=== PATIENT | male | born 1950 | race American Indian/Alaskan Native ===

== ENCOUNTER 2017-03-23 10:33 | Emergency (ER) | payer MEDICARE ==
--- NOTE | 2017-03-23 11:37 | Emergency Department Report ---
Chief Complaint: Skin Rash Stated Complaint: RASH Time Seen by Provider: 03/23/17 11:32 - HPI History of Present Illness: Patient is a 66-year-old male presents to ED complaining of burning in type lesions to his left forehead hurts and is not dilated. Patient states she was at a [employer] [place] 3 days ago and since then he broke out into this lesions and has gotten worse. Patient's states no blurred vision. Patient reports left upper lid swelling. States rash is not itching He denies fevers/chills/nausea/vomiting - ROS Review of Systems: As noted in HPI - Exam Vital Signs: Vital Signs 03/23/17 11:01 Temperature 98.1 F Pulse Rate 88 Respiratory 20 Rate Blood Pressure 158/89 O2 Sat by Pulse 100 Oximetry Physical Exam: GENERAL: Alert and oriented x3, no apparent distress, Normal Gait, atraumatic. HEAD: Head is normocephalic , left forehead lesions noted EYES: Left ocular edema. Vision intact. Sclera white nonerythematous SKIN: Generalized vesicular raised grouped lesions on left side of forehead spread along the V1 dermatome MSE screening note: Focused history and physical exam performed. Due to findings the following was ordered: ED Medical Decision Making - Medical Decision Making Patient was sent to be seen by fascia provider for eye exam, fluorescein stain, and continued examination and assessment ED Disposition for MSE Condition: Stable
[2017-03-23] MEDS ORDERED: FUL-GLO OP ONE (12:34)
[2017-03-23 13:31] VITALS: BP 170/89
--- NOTE | 2017-03-24 23:40 | Emergency Department Report ---
Entered by YAHIR CONNELL, acting as scribe for LIZA TAPIA PA. ED Eye Problem HPI - General Chief complaint: Skin Rash Stated complaint: RASH Time Seen by Provider: 03/23/17 11:32 Source: patient Mode of arrival: Ambulatory Limitations: No Limitations - History of Present Illness Initial comments: 66 year old male with no significant PMHx presents to the ED with c/o breakout on left forehead and left eye pain for 3 days. Patient reports he noticed his head was itchy and noticed a break out. Patient states mild chills and left eye swelling, but denies headache, fever, no blurry vision, nausea, vomiting, and ear ache. He also states no PMHx of shingles or chicken pox, and believes he had vaccine for Chicken Pox. He denies no PSHx. MD chief complaint: eye pain Onset/Timin -: days(s) Onset Description: sudden Location: left eye Place: home If Injury: none Eye Symptoms: itching Severity: moderate Severity scale (0 -10): 5 If Pain, Quality: burning Consistency: constant Associated Symptoms: none. denies: headache, neck pain, nausea/vomiting, cough , rhinorrhea, fever Treatments Prior to Arrival: other (counter meds and Aloe Vera meds) - Related Data Previous Rx's Medication Instructions Recorded Last Taken Type Cyclobenzaprine [Flexeril 10 MG 10 mg PO TID PRN #30 tablet 05/06/15 Unknown Rx TAB] Ibuprofen [Motrin 800 MG tab] 800 mg PO Q8HR #30 tablet 05/06/15 Unknown Rx traMADol [Ultram 50 MG tab] 50 mg PO Q6HR PRN #20 tablet 05/06/15 Unknown Rx Glycerin/Propylene Glycol 15 ml OP Q4H #1 bottle 03/23/17 Unknown Rx [Artificial Tears Drops] HYDROcodone/APAP 5-325 [Milner 1 each PO Q6HR PRN #15 tablet 03/23/17 Unknown Rx 5/325] Naproxen [Naprosyn TAB] 500 mg PO BID PRN #20 tablet 03/23/17 Unknown Rx Valacyclovir HCl [Valtrex] 1,000 mg PO TID #21 tablet 03/23/17 Unknown Rx Allergies Allergy/AdvReac Type Severity Reaction Status Date / Time No Known Allergies Allergy Unverified 05/06/15 13:58 ED Review of Systems Comment: All other systems reviewed and negative Constitutional: denies: chills, fever Eyes: eye pain (left eye), other (left eye swelling). denies: eye discharge, vision change ENT: denies: ear pain, throat pain Respiratory: denies: cough, shortness of breath, wheezing Cardiovascular: denies: chest pain, palpitations Gastrointestinal: denies: abdominal pain, nausea, diarrhea Genitourinary: denies: urgency, dysuria Musculoskeletal: denies: back pain, joint swelling, arthralgia Skin: rash, lesions Neurological: denies: headache, weakness, paresthesias ED Past Medical Hx - Past Medical History Previous Medical History?: No - Surgical History Past Surgical History?: No - Social History Smoking Status: Never Smoker Substance Use Type: Non Opiate Pain, Other - Medications Home Medications: Home Medications Medication Instructions Recorded Confirmed Last Taken Type Cyclobenzaprine [Flexeril 10 MG 10 mg PO TID PRN #30 tablet 05/06/15 Unknown Rx TAB] Ibuprofen [Motrin 800 MG tab] 800 mg PO Q8HR #30 tablet 05/06/15 Unknown Rx traMADol [Ultram 50 MG tab] 50 mg PO Q6HR PRN #20 tablet 05/06/15 Unknown Rx Glycerin/Propylene Glycol 15 ml OP Q4H #1 bottle 03/23/17 Unknown Rx [Artificial Tears Drops] HYDROcodone/APAP 5-325 [Milner 1 each PO Q6HR PRN #15 tablet 03/23/17 Unknown Rx 5/325] Naproxen [Naprosyn TAB] 500 mg PO BID PRN #20 tablet 03/23/17 Unknown Rx Valacyclovir HCl [Valtrex] 1,000 mg PO TID #21 tablet 03/23/17 Unknown Rx ED Physical Exam - General Limitations: No Limitations General appearance: alert, in no apparent distress - Head Head exam: Present: atraumatic, normocephalic - Eye Eye exam: Present: normal appearance, PERRL, EOMI - Expanded Eye Exam Expanded Eyelids: Erythema: Left, Swelling: Left Pupils: Regular, Round: Bilateral, Reactive: Bilateral Sclera/Conjunctival: Normal Inspection: Left (mild left-sided conjunctival injection, no dendritic lesions seen on fluorescein stain), Injection: Left Visual acuity (R) = 20/: 20 Visual acuity (L) = 20/: 25 - ENT ENT exam: Present: mucous membranes moist - Neck Neck exam: Present: normal inspection, full ROM - Respiratory Respiratory exam: Present: normal lung sounds bilaterally. Absent: respiratory distress, wheezes, rales, rhonchi, stridor - Cardiovascular Cardiovascular Exam: Present: regular rate, normal rhythm. Absent: systolic murmur, diastolic murmur, rubs, gallop - GI/Abdominal GI/Abdominal exam: Present: soft, normal bowel sounds - Rectal Rectal exam: Present: deferred - Extremities Exam Extremities exam: Present: normal inspection - Back Exam Back exam: Present: normal inspection - Neurological Exam Neurological exam: Present: alert, oriented X3, CN II-XII intact, normal gait - Psychiatric Psychiatric exam: Present: normal affect, normal mood - Skin Skin exam: Present: warm, dry, intact, normal color. Absent: rash ED Course Vital Signs 03/23/17 11:01 Temperature 98.1 F Pulse Rate 88 Respiratory 20 Rate Blood Pressure 158/89 O2 Sat by Pulse 100 Oximetry ED Medical Decision Making - Medical Decision Making A/P: Shingles/zoster of the face 1-left eye exam done with fluorescein stain, no dendritic lesions visualized on cornea. Done with Dr. Mooney. Visual acuity left eye 20/25, right eye 20/20, overall 20/20. As per [email or web address] recommendations will herpes zoster ( shingles): Oral: Immunocompetent patients: 1 g 3 times daily for 7 days 2-Motrin when necessary, Milner when necessary short course 3-artificial tears PRn, i advised pt to practice strict hand hygiene 4-I specifically advised the patient to follow up as soon as possible with ophthalmology. I emphasized the importance of follow-up to mitigate any potential blindness or loss of eyesight left eye secondary to retinal necrosis. Patient stated he understood the importance of following up with ophthalmology as soon as possible. As of current examination eyesight is intact and there are no signs of herpes opthalamicus. 5- I called the opthalmology practice of Dr. Almanza/Dr. Barry and set up appointment for 2pm tomorrow in [place] location, pt informed and states he will follow up tomorrow. ED Disposition Clinical Impression: Herpes zoster Qualifiers: Herpes zoster complications: without complications Qualified Code(s): B02.9 - Zoster without complications Disposition: DC-01 TO HOME OR SELFCARE Is pt being admited?: No Does the pt Need Aspirin: No Condition: Stable Instructions: Valacyclovir (By mouth), Herpes Zoster (ED) Prescriptions: Glycerin/Propylene Glycol [Artificial Tears Drops] 15 ml OP Q4H #1 bottle HYDROcodone/APAP 5-325 [Milner 5/325] 1 each PO Q6HR PRN #15 tablet PRN Reason: Pain Naproxen [Naprosyn TAB] 500 mg PO BID PRN #20 tablet PRN Reason: Pain Valacyclovir HCl [Valtrex] 1,000 mg PO TID #21 tablet Referrals: FARZANEH BARRY MD [Staff Physician] - 3-5 Days Forms: Work/School Release Form(ED) Time of Disposition: 13:11 This documentation as recorded by the BECKI boswell PEARL,accurately reflects the service I personally performed and the decisions made by ,LIZA TAPIA PA.
== END 2017-03-23 13:31 | disposition home or self-care (01) ==
LOC: ED 10:33
DX: B02.9 Zoster without complications (principal)
CPT/HCPCS: 99283